=== PATIENT | male | born 1945 | race Two or more races ===

== ENCOUNTER 2018-10-15 11:07 | Outpatient (CLI) | payer OTHER | END 2018-10-15 11:17 | disposition home or self-care (01) | LOC: NUCLEAR 11:07 | DX: Z86.718 Personal history of other venous thrombosis and embolism (principal); I87.2 Venous insufficiency (chronic) (peripheral) ==

== ENCOUNTER 2019-11-26 08:52 | Outpatient (CLI) | payer OTHER | END 2019-11-26 08:59 | disposition home or self-care (01) | LOC: LAB 08:52 | DX: D50.8 Other iron deficiency anemias (principal); I10 Essential (primary) hypertension; E55.9 Vitamin D deficiency, unspecified; D51.1 Vitamin B12 deficiency anemia due to selective vitamin B12 malabsorption with proteinuria; D51.0 Vitamin B12 deficiency anemia due to intrinsic factor deficiency; R97.0 Elevated carcinoembryonic antigen [CEA]; R97.8 Other abnormal tumor markers; R97.20 Elevated prostate specific antigen [PSA]; D51.3 Other dietary vitamin B12 deficiency anemia; D72.818 Other decreased white blood cell count; E78.2 Mixed hyperlipidemia ==

== ENCOUNTER 2019-12-15 07:39 | Outpatient (CLI) | payer OTHER | END 2019-12-15 07:48 | disposition home or self-care (01) | LOC: TOM 07:39 | DX: R91.8 Other nonspecific abnormal finding of lung field (principal); R91.1 Solitary pulmonary nodule ==

== ENCOUNTER 2020-05-30 07:14 | Outpatient (CLI) | payer OTHER ==
[2020-06-13] MEDS ORDERED: HYDROCHLOROTHIA25 MG PO (13:28)
[2020-06-13] MEDS ORDERED: LOSARTAN POTASS25 MG PO (13:28)
[2020-06-13] MEDS ORDERED: ATORVASTATIN CA20 MG PO (13:28)
[2020-06-13] MEDS ORDERED: DAFLONEX-XL 11300 MG PO (13:29)
[2020-06-13] MEDS ORDERED: FINASTERIDE5 MG PO (13:29)
[2020-06-13] MEDS ORDERED: CIPRO500 MG PO (13:29)
[2020-06-13] MEDS ORDERED: TAMS0.4C PO (13:30)
[2020-06-13] MEDS ORDERED: FUSION PLUS CA1 EACH PO (13:30)
[2020-06-13] MEDS ORDERED: NEURIN PO (13:31)
[2020-06-13] MEDS ORDERED: VITAMIN B PO (13:32)
== END 2020-05-30 13:00 | disposition home or self-care (01) ==
LOC: RAD 07:14 → LAB 07:14
PROVIDERS: ATTEND Urology
DX: R33.8 Other retention of urine (principal); Z01.812 Encounter for preprocedural laboratory examination; I11.0 Hypertensive heart disease with heart failure; Z11.59 Encounter for screening for other viral diseases; Z20.828 Contact with and (suspected) exposure to other viral communicable diseases

== ENCOUNTER 2020-06-05 06:34 | Emergency (ER) | payer OTHER ==
[~2020-06-05] VITALS: Ht 182.9 cm; Wt 96.6 kg
[2020-06-13] MEDS ORDERED: LOSARTAN POTASS25 MG PO (13:28)
[2020-06-13] MEDS ORDERED: ATORVASTATIN CA20 MG PO (13:28)
[2020-06-13] MEDS ORDERED: HYDROCHLOROTHIA25 MG PO (13:28)
[2020-06-13] MEDS ORDERED: CIPRO500 MG PO (13:29)
[2020-06-13] MEDS ORDERED: FINASTERIDE5 MG PO (13:29)
[2020-06-13] MEDS ORDERED: DAFLONEX-XL 11300 MG PO (13:29)
[2020-06-13] MEDS ORDERED: FUSION PLUS CA1 EACH PO (13:30)
[2020-06-13] MEDS ORDERED: TAMS0.4C PO (13:30)
[2020-06-13] MEDS ORDERED: NEURIN PO (13:31)
[2020-06-13] MEDS ORDERED: VITAMIN B PO (13:32)
== END 2020-06-05 10:52 | disposition home or self-care (01) ==
LOC: ER 06:34
DX: G40.89 Other seizures (principal); Z20.828 Contact with and (suspected) exposure to other viral communicable diseases

== ENCOUNTER 2020-06-08 06:19 | Outpatient (CLI) | payer OTHER ==
[2020-06-13] MEDS ORDERED: ATORVASTATIN CA20 MG PO (13:28)
[2020-06-13] MEDS ORDERED: LOSARTAN POTASS25 MG PO (13:28)
[2020-06-13] MEDS ORDERED: HYDROCHLOROTHIA25 MG PO (13:28)
[2020-06-13] MEDS ORDERED: FINASTERIDE5 MG PO (13:29)
[2020-06-13] MEDS ORDERED: CIPRO500 MG PO (13:29)
[2020-06-13] MEDS ORDERED: DAFLONEX-XL 11300 MG PO (13:29)
[2020-06-13] MEDS ORDERED: TAMS0.4C PO (13:30)
[2020-06-13] MEDS ORDERED: FUSION PLUS CA1 EACH PO (13:30)
[2020-06-13] MEDS ORDERED: NEURIN PO (13:31)
[2020-06-13] MEDS ORDERED: VITAMIN B PO (13:32)
== END 2020-06-08 15:00 | disposition home or self-care (01) ==
LOC: LAB 06:19
PROVIDERS: ATTEND Internal Medicine Geriatric Medicine
DX: R80.8 Other proteinuria (principal); N19 Unspecified kidney failure

== ENCOUNTER 2020-06-12 06:10 | Outpatient (CLI) | payer OTHER ==
[2020-06-13] MEDS ORDERED: LOSARTAN POTASS25 MG PO (13:28)
[2020-06-13] MEDS ORDERED: ATORVASTATIN CA20 MG PO (13:28)
[2020-06-13] MEDS ORDERED: HYDROCHLOROTHIA25 MG PO (13:28)
[2020-06-13] MEDS ORDERED: FINASTERIDE5 MG PO (13:29)
[2020-06-13] MEDS ORDERED: DAFLONEX-XL 11300 MG PO (13:29)
[2020-06-13] MEDS ORDERED: CIPRO500 MG PO (13:29)
[2020-06-13] MEDS ORDERED: TAMS0.4C PO (13:30)
[2020-06-13] MEDS ORDERED: FUSION PLUS CA1 EACH PO (13:30)
[2020-06-13] MEDS ORDERED: NEURIN PO (13:31)
[2020-06-13] MEDS ORDERED: VITAMIN B PO (13:32)
== END 2020-06-12 06:20 | disposition home or self-care (01) ==
LOC: LAB 06:10
PROVIDERS: ATTEND Internal Medicine Geriatric Medicine
DX: R80.8 Other proteinuria (principal); N19 Unspecified kidney failure

== ENCOUNTER 2020-06-14 06:00 | Day surgery (SDC) | payer OTHER ==
[~2020-06-14] VITALS: Ht 182.9 cm; Wt 93.9 kg
[~2020-06-14 06:00] MED LIST: ATORVASTATIN CA20 MG PO; CIPRO500 MG PO; DAFLONEX-XL 11300 MG PO; FINASTERIDE5 MG PO; FUSION PLUS CA1 EACH PO; HYDROCHLOROTHIA25 MG PO; LOSARTAN POTASS25 MG PO; NEURIN PO; TAMS0.4C PO; VITAMIN B PO
== END 2020-06-15 08:00 | disposition home or self-care (01) ==
LOC: CIR.AMB 06:00 → SURH 08:45 → EDSTATUS 08:45 → SURH 10:00 → SURG 13:21 → O/R 13:21 → CIR.AMB 06-15 08:00 → SURG 06-15 10:20 → O/R 06-15 10:20
PROVIDERS: ATTEND Urology
DX: N40.1 Benign prostatic hyperplasia with lower urinary tract symptoms (principal); R33.8 Other retention of urine

== ENCOUNTER → 2020-06-19 06:36 | Outpatient (CLI) | payer OTHER | END | disposition home or self-care (01) | LOC: LAB 06:36 | PROVIDERS: ATTEND Internal Medicine Geriatric Medicine | DX: N19 Unspecified kidney failure (principal); R80.8 Other proteinuria; I11.9 Hypertensive heart disease without heart failure ==

== ENCOUNTER 2020-11-20 07:33 | Outpatient (CLI) | payer OTHER | END 2020-11-20 07:40 | disposition home or self-care (01) | LOC: LAB 07:33 | PROVIDERS: ATTEND Internal Medicine Hematology & Oncology | DX: D50.8 Other iron deficiency anemias (principal); I10 Essential (primary) hypertension; D51.8 Other vitamin B12 deficiency anemias; D55.0 Anemia due to glucose-6-phosphate dehydrogenase [G6PD] deficiency; D63.1 Anemia in chronic kidney disease; R97.0 Elevated carcinoembryonic antigen [CEA]; R97.8 Other abnormal tumor markers; R97.20 Elevated prostate specific antigen [PSA]; D51.3 Other dietary vitamin B12 deficiency anemia; D72.818 Other decreased white blood cell count; N40.1 Benign prostatic hyperplasia with lower urinary tract symptoms ==

== ENCOUNTER → 2021-02-19 07:02 | Outpatient (CLI) | payer OTHER | END | disposition home or self-care (01) | LOC: LAB 07:02 | PROVIDERS: ATTEND Internal Medicine Hematology & Oncology | DX: D50.8 Other iron deficiency anemias (principal); R79.9 Abnormal finding of blood chemistry, unspecified; R74.02 Elevation of levels of lactic acid dehydrogenase [LDH]; K76.89 Other specified diseases of liver; D50.0 Iron deficiency anemia secondary to blood loss (chronic); D51.8 Other vitamin B12 deficiency anemias; D63.0 Anemia in neoplastic disease ==

== ENCOUNTER → 2021-03-27 07:04 | Outpatient (CLI) | payer OTHER | END | disposition home or self-care (01) | LOC: LAB 07:04 | PROVIDERS: ATTEND Internal Medicine Hematology & Oncology | DX: D50.8 Other iron deficiency anemias (principal); R79.9 Abnormal finding of blood chemistry, unspecified; D47.2 Monoclonal gammopathy; C90.00 Multiple myeloma not having achieved remission; R74.02 Elevation of levels of lactic acid dehydrogenase [LDH]; K76.89 Other specified diseases of liver; D51.3 Other dietary vitamin B12 deficiency anemia; D72.818 Other decreased white blood cell count; N40.1 Benign prostatic hyperplasia with lower urinary tract symptoms; R97.20 Elevated prostate specific antigen [PSA]; E78.2 Mixed hyperlipidemia; D72.820 Lymphocytosis (symptomatic); D63.1 Anemia in chronic kidney disease; N18.30 Chronic kidney disease, stage 3 unspecified; I12.9 Hypertensive chronic kidney disease with stage 1 through stage 4 chronic kidney disease, or unspecified chronic kidney disease ==

== ENCOUNTER 2021-07-27 07:24 | Outpatient (CLI) | payer OTHER | END 2021-07-27 07:25 | disposition home or self-care (01) | LOC: LAB 07:24 | PROVIDERS: ATTEND Internal Medicine Hematology & Oncology | DX: I10 Essential (primary) hypertension (principal); R79.89 Other specified abnormal findings of blood chemistry; D50.8 Other iron deficiency anemias; R74.02 Elevation of levels of lactic acid dehydrogenase [LDH]; K76.89 Other specified diseases of liver; D51.8 Other vitamin B12 deficiency anemias; R97.0 Elevated carcinoembryonic antigen [CEA]; R97.20 Elevated prostate specific antigen [PSA]; D72.820 Lymphocytosis (symptomatic); D51.3 Other dietary vitamin B12 deficiency anemia; D72.818 Other decreased white blood cell count; D63.1 Anemia in chronic kidney disease; N18.30 Chronic kidney disease, stage 3 unspecified; N40.1 Benign prostatic hyperplasia with lower urinary tract symptoms; E78.2 Mixed hyperlipidemia ==

== ENCOUNTER 2022-01-16 07:33 | Outpatient (CLI) | payer OTHER | END 2022-01-16 07:45 | disposition home or self-care (01) | LOC: LAB 07:33 | PROVIDERS: ATTEND Internal Medicine Hematology & Oncology | DX: D50.8 Other iron deficiency anemias (principal); R79.9 Abnormal finding of blood chemistry, unspecified; R74.02 Elevation of levels of lactic acid dehydrogenase [LDH]; K76.89 Other specified diseases of liver; D51.8 Other vitamin B12 deficiency anemias; R97.0 Elevated carcinoembryonic antigen [CEA]; R97.8 Other abnormal tumor markers; D63.1 Anemia in chronic kidney disease; D72.820 Lymphocytosis (symptomatic); D51.3 Other dietary vitamin B12 deficiency anemia; D72.818 Other decreased white blood cell count; N40.1 Benign prostatic hyperplasia with lower urinary tract symptoms; R97.20 Elevated prostate specific antigen [PSA]; E78.2 Mixed hyperlipidemia; N18.30 Chronic kidney disease, stage 3 unspecified ==

== ENCOUNTER 2022-07-22 07:08 | Outpatient (CLI) | payer OTHER | END 2022-07-22 07:09 | disposition home or self-care (01) | LOC: LAB 07:08 | PROVIDERS: ATTEND Internal Medicine Hematology & Oncology | DX: D50.8 Other iron deficiency anemias (principal); R79.9 Abnormal finding of blood chemistry, unspecified; R74.02 Elevation of levels of lactic acid dehydrogenase [LDH]; K76.89 Other specified diseases of liver; D63.1 Anemia in chronic kidney disease; C25.9 Malignant neoplasm of pancreas, unspecified; R97.8 Other abnormal tumor markers; R97.0 Elevated carcinoembryonic antigen [CEA]; R77.2 Abnormality of alphafetoprotein; D72.820 Lymphocytosis (symptomatic); D51.3 Other dietary vitamin B12 deficiency anemia; D72.818 Other decreased white blood cell count; R97.20 Elevated prostate specific antigen [PSA]; E78.2 Mixed hyperlipidemia; N40.1 Benign prostatic hyperplasia with lower urinary tract symptoms; N18.30 Chronic kidney disease, stage 3 unspecified ==

== ENCOUNTER 2023-02-27 07:50 | Outpatient (CLI) | payer OTHER | END 2023-02-27 07:55 | disposition home or self-care (01) | LOC: LAB 07:50 | PROVIDERS: ATTEND Internal Medicine Hematology & Oncology | DX: D50.8 Other iron deficiency anemias (principal); R79.9 Abnormal finding of blood chemistry, unspecified; I10 Essential (primary) hypertension; E55.9 Vitamin D deficiency, unspecified; D63.1 Anemia in chronic kidney disease; R97.8 Other abnormal tumor markers; R77.2 Abnormality of alphafetoprotein; C25.9 Malignant neoplasm of pancreas, unspecified; K76.89 Other specified diseases of liver; R97.20 Elevated prostate specific antigen [PSA] ==

== ENCOUNTER → 2024-09-07 07:51 | Outpatient (CLI) | payer OTHER ==
[2024-09-07 08:36] LABS: HEMATOCRIT 41.1 % (39.0-48.0); HEMOGLOBIN 13.7 g/dL (13-16.00); MEAN CELL VOLUME 83.7 fL (80.0-100.00); MEAN CORPUSCULAR HEMOGLOBIN 27.8 pg (27.00-32.0); MEAN CORPUSCULAR HGB CONC 33.2 g/dl (32.0-36.0); PLATELET COUNT 227 K/uL (150-450); RED BLOOD COUNT 4.92 M/uL (4.00-6.00); RED CELL DISTRIBUTION WIDTH 13.3 % (11.5-14.5)
[2024-09-07 09:31] LABS: % SATURACION 33.7 % (20-50); ALBUMIN 3.7 gm/dL (3.4-5.0); BILIRUBIN TOTAL 0.54 mg/dL (0.3-1.2); CALCIUM 9.4 mg/dL (8.5-10.1); CREATININE SERUM 1.54 mg/dL (0.70-1.30); FERRITIN 428.5 NG/ML (26-388); GFR 43.68; GLOBULINA 3.4 G/DL (2.4-3.5); POTASSIUM 4.03 mEq/L (3.5-5.1); PROSTATIC SPECIFIC ANTIGEN 1.48 NG/ML (0.010-4.00); TOTAL PROTEIN 7.1 gm/dL (6.4-8.2)
[2024-09-07 10:07] LABS: MANUAL PLATELET COUNT 432
[2024-09-07 10:08] LABS: PLATELET ESTIMATE NORMAL (NORMAL)
[2024-09-07 15:24] LABS: VITAMIN D3 25 HYDROXY 52.73 ng/ml (30-120)
[2024-09-08 06:05] LABS: ALPHA FETO PROTEIN 3.7 ng/mL (0.0-8.4)
[2024-09-08 10:43] LABS: FOLIC ACID > 20.00 ng/ml (4.78-20)
== END | disposition home or self-care (01) ==
LOC: LAB 07:51
PROVIDERS: ATTEND Internal Medicine Hematology & Oncology
DX: D72.820 Lymphocytosis (symptomatic) (principal); D51.3 Other dietary vitamin B12 deficiency anemia; D72.818 Other decreased white blood cell count; D63.1 Anemia in chronic kidney disease; N40.1 Benign prostatic hyperplasia with lower urinary tract symptoms; R97.20 Elevated prostate specific antigen [PSA]; N18.30 Chronic kidney disease, stage 3 unspecified; I10 Essential (primary) hypertension; E78.2 Mixed hyperlipidemia; G40.009 Localization-related (focal) (partial) idiopathic epilepsy and epileptic syndromes with seizures of localized onset, not intractable, without status epilepticus; D50.8 Other iron deficiency anemias; R79.9 Abnormal finding of blood chemistry, unspecified; R74.02 Elevation of levels of lactic acid dehydrogenase [LDH]; K76.89 Other specified diseases of liver; E55.9 Vitamin D deficiency, unspecified; C25.9 Malignant neoplasm of pancreas, unspecified; R97.0 Elevated carcinoembryonic antigen [CEA]

== ENCOUNTER 2025-03-10 07:49 | Outpatient (CLI) | payer OTHER ==
[2025-03-10 08:43] LABS: BASO % 0.7 % (0.1-1.2); EOS # 0.11 (0.04-0.54); HEMATOCRIT 43.6 % (40.1-51.0); HEMOGLOBIN 14.3 g/dL (13.7-17.5); LYMPH # 1.59 (1.18-3.74); LYMPH % 28.9 % (19.3-53.1); MONO # 0.62 (0.24-0.82); MONO % 11.3 % (4.7-12.5); NEUT # 3.14 (1.56-6.13); NEUT % 56.9 % (34.0-71.1); PLATELET COUNT 157 K/uL (163-369); RED CELL DISTRIBUTION WIDTH 12.9 % (11.6-14.4)
[2025-03-10 09:30] LABS: ALBUMIN 3.7 gm/dL (3.4-5.0); BILIRUBIN TOTAL 0.52 mg/dL (0.3-1.2); CALCIUM 9.2 mg/dL (8.5-10.1); CREATININE SERUM 1.59 mg/dL (0.70-1.30); FERRITIN 234.6 NG/ML (26-388); GFR 41.99; GLOBULINA 3.8 G/DL (2.4-3.5); POTASSIUM 3.93 mEq/L (3.5-5.1); PROSTATIC SPECIFIC ANTIGEN 0.238 NG/ML (0.010-4.00); TOTAL PROTEIN 7.5 gm/dL (6.4-8.2)
[2025-03-10 10:55] LABS: FOLIC ACID > 20.00 ng/ml (4.78-20); VITAMIN D3 25 HYDROXY 52.44 ng/ml (30-120)
[2025-03-11 09:08] LABS: ALPHA FETO PROTEIN 3.7 ng/mL (0.0-6.4)
[2025-03-11 17:10] LABS: ERYTHROPOIETIN 7.1 mIU/mL (2.6-18.5)
== END 2025-03-10 07:57 | disposition home or self-care (01) ==
LOC: LAB 07:49
PROVIDERS: ATTEND Internal Medicine Hematology & Oncology
DX: D50.8 Other iron deficiency anemias (principal); I10 Essential (primary) hypertension; R74.02 Elevation of levels of lactic acid dehydrogenase [LDH]; K76.89 Other specified diseases of liver; R79.9 Abnormal finding of blood chemistry, unspecified; E55.9 Vitamin D deficiency, unspecified; D63.1 Anemia in chronic kidney disease; C25.9 Malignant neoplasm of pancreas, unspecified; R97.0 Elevated carcinoembryonic antigen [CEA]; R77.2 Abnormality of alphafetoprotein; D72.820 Lymphocytosis (symptomatic); D51.3 Other dietary vitamin B12 deficiency anemia; D72.818 Other decreased white blood cell count; N40.1 Benign prostatic hyperplasia with lower urinary tract symptoms; R97.20 Elevated prostate specific antigen [PSA]; N18.30 Chronic kidney disease, stage 3 unspecified; E78.2 Mixed hyperlipidemia; G40.009 Localization-related (focal) (partial) idiopathic epilepsy and epileptic syndromes with seizures of localized onset, not intractable, without status epilepticus

== ENCOUNTER 2025-05-30 16:18 | Emergency (ER) | payer OTHER ==
[~2025-05-30] VITALS: Ht 182.9 cm; Wt 93.0 kg
[2025-05-30] MEDS ORDERED: KEPPRA XR750 MG PO (16:42)
[2025-05-30] MEDS ORDERED: SUPER B-COMPL400 MCG PO (16:43)
[2025-05-30] MEDS ORDERED: ORPHENADRINE CITRATE 30 MG/ML AMPUL IM STA (18:28)
[2025-05-30] MEDS ORDERED: KETOROLAC TROMETHAMINE 15 MG VIAL IM STA (18:28)
[2025-05-30] MEDS ORDERED: ADVIL DUAL ACT1 EACH PO (21:55)
[2025-05-30] MEDS ORDERED: METAXALONE400 MG PO (21:55)
== END 2025-05-31 09:37 | disposition home or self-care (01) ==
LOC: ER 16:18
DX: M54.2 Cervicalgia (principal); M62.838 Other muscle spasm
CPT/HCPCS: 72040; 96372; 99283; J1885; J2360

== ENCOUNTER 2025-06-02 07:05 | Outpatient (CLI) | payer OTHER ==
[~2025-06-02 07:05] MED LIST changes: +ADVIL DUAL ACT1 EACH PO; +KEPPRA XR750 MG PO; +METAXALONE400 MG PO; +SUPER B-COMPL400 MCG PO
== END 2025-06-02 07:07 | disposition home or self-care (01) ==
LOC: MRI 07:05
PROVIDERS: ATTEND Surgery
DX: M54.2 Cervicalgia (principal); M62.838 Other muscle spasm
CPT/HCPCS: 72141

== ENCOUNTER → 2025-09-09 06:51 | Outpatient (CLI) | payer OTHER ==
[2025-09-09 07:49] LABS: BASO % 0.6 % (0.1-1.2); EOS # 0.16 (0.04-0.54); EOS % 3.1 % (0.7-7.0); LYMPH # 1.47 (1.18-3.74); LYMPH % 28.3 % (19.3-53.1); MEAN PLATELET VOLUME 11.90 fl (9.4-12.4); MONO # 0.59 (0.24-0.82); MONO % 11.3 % (4.7-12.5); NEUT # 2.94 (1.56-6.13); NEUT % 56.5 % (34.0-71.1); RED CELL DISTRIBUTION WIDTH 12.9 % (11.6-14.4)
[2025-09-09 08:36] LABS: % SATURACION 25.4 % (20-50); ALT/SGPT 34.0 U/L (12-78); AST/SGOT 16.0 U/L (15-37); BILIRUBIN TOTAL 0.5 mg/dL (0.3-1.2); BUN CREA RATIO 12.0 (7.0-25.0); CREATININE SERUM 1.61 mg/dL (0.70-1.30); FE 72.0 ug/dl (65-175); GFR 41.39; GLOBULINA 3.8 G/DL (2.4-3.5); GLUCOSE FASTING 91.0 mg/dL (65-100); LDH 123.0 U/L (87-241); OSMOLALITY SERUM 289.0 MOSM/KG (275-295); PROSTATIC SPECIFIC ANTIGEN 0.187 NG/ML (0.010-4.00)
[2025-09-09 11:19] LABS: FOLIC ACID > 20.00 ng/ml (4.78-20); VITAMIN D3 25 HYDROXY 49.70 ng/ml (30-120)
== END | disposition home or self-care (01) ==
LOC: LAB 06:51
PROVIDERS: ATTEND Internal Medicine Hematology & Oncology
DX: D72.820 Lymphocytosis (symptomatic) (principal); D51.3 Other dietary vitamin B12 deficiency anemia; D72.818 Other decreased white blood cell count; D63.1 Anemia in chronic kidney disease; R97.20 Elevated prostate specific antigen [PSA]; N18.30 Chronic kidney disease, stage 3 unspecified; I10 Essential (primary) hypertension; E78.2 Mixed hyperlipidemia; G40.009 Localization-related (focal) (partial) idiopathic epilepsy and epileptic syndromes with seizures of localized onset, not intractable, without status epilepticus; D50.8 Other iron deficiency anemias; R74.02 Elevation of levels of lactic acid dehydrogenase [LDH]; K76.89 Other specified diseases of liver; R97.0 Elevated carcinoembryonic antigen [CEA]